=== PATIENT | male | born 1945 | race Caucasian/White ===

== ENCOUNTER → 2023-09-03 11:18 | Outpatient (REF) | payer MEDICARE, OTHER, SELFPAY ==
[2023-09-03 12:01] LABS: D-Dimer 0.38 ug/mlFEU (0.00-0.50)
== END ==
LOC: REG 11:18
PROVIDERS: ATTENDING PHYSICIAN Internal Medicine Critical Care Medicine; FAMILY PHYSICIAN Family Medicine
DX: I27.20 Pulmonary hypertension, unspecified (principal); Z86.711 Personal history of pulmonary embolism; G47.33 Obstructive sleep apnea (adult) (pediatric)
CPT/HCPCS: 36415; 85379

== ENCOUNTER → 2023-09-17 11:21 | Outpatient (REF) | payer MEDICARE, OTHER, SELFPAY | LOC: RAD 11:21 | PROVIDERS: ATTENDING PHYSICIAN Otolaryngology; FAMILY PHYSICIAN Family Medicine | DX: J01.00 Acute maxillary sinusitis, unspecified (principal) | CPT/HCPCS: 70486 ==

== ENCOUNTER → 2023-09-30 09:50 | Outpatient (REF) | payer MEDICARE, OTHER, SELFPAY | LOC: PAVMRI 09:50 | PROVIDERS: ATTENDING PHYSICIAN Physician Assistant; FAMILY PHYSICIAN Family Medicine | DX: M54.16 Radiculopathy, lumbar region (principal) | CPT/HCPCS: 72148 ==

== ENCOUNTER → 2023-10-06 13:42 | Outpatient (REF) | payer MEDICARE, OTHER, SELFPAY ==
[2023-10-06 14:53] LABS: D-Dimer 0.31 ug/mlFEU (0.00-0.50)
== END ==
LOC: REG 13:42
PROVIDERS: ATTENDING PHYSICIAN Internal Medicine Critical Care Medicine; FAMILY PHYSICIAN Family Medicine
DX: Z86.711 Personal history of pulmonary embolism (principal)
CPT/HCPCS: 36415; 85379

== ENCOUNTER 2023-12-03 12:21 | Emergency (ER) | payer MEDICARE, OTHER, SELFPAY ==
[2023-12-03 12:22] VITALS: BP 124/76
[2023-12-03 13:00] VITALS: BP 129/80
[2023-12-03 13:12] LABS: % Basophils 1.1 % (0-2); % Eosinophils 3.8 % (0-6); % Immature Granulocytes 0.3 % (0-0.5); % Monocytes 10.7 % (1.7-9.3); % Neutrophils 55.1 % (42.2-75.2); Absolute Eosinophils 0.1 10^3/uL (0-0.7); Absolute Lymphocytes 1.1 10^3/uL (1.2-3.4); Absolute Monocytes 0.4 10^3/uL (0.1-0.6); Hematocrit 39.4 % (39.0-52.0); Hemoglobin 14.1 g/dL (13.0-18.0); Mean Corp Hgb Conc. 35.8 g/dL (33.0-37.0); Mean Corpuscular Hgb 30.5 pg (27.0-31.0); Mean Corpuscular Volume 85.3 fL (80.0-94.0); Nucleated Red Blood Cells % 0 % (-); Platelet Count 151 10^3/uL (130-400); Red Blood Cell Count 4.62 10^6/uL (4.70-6.10); Red Cell Dist. Width 13.7 % (11.5-14.5); White Blood Cell Count 3.7 10^3/uL (4.8-10.8)
[2023-12-03 13:22] LABS: ALT (SGPT) 17 U/L (0-50); AST (SGOT) 22 U/L (17-59); Alkaline Phosphatase 68 U/L (38-126); Blood Urea Nitrogen 17 mg/dl (9-20); Calcium 8.9 mg/dl (8.4-10.2); Carbon Dioxide 24 mmol/L (22-30); Chloride 109 mmol/L (98-107); Glucose 102 mg/dl (70-99); Potassium 4.1 mmol/L (3.5-5.1); Sodium 139 mmol/L (135-145); Total Bilirubin 0.9 mg/dl (0.2-1.3); Total Protein 6.5 g/dl (6.3-8.2); eGFR > 60.00
--- NOTE | 2023-12-03 13:31 | ED.GENMED ---
History of Present Illness
General
Chief Complaint: Breathing Problem
Time Seen by Provider: 12/03/23 13:09
Travel History
Have you had any contact with someone who has COVID-19?: No
Do you have any symptoms of coronavirus? Fever > 100 degrees, chills, cough, shortness of breath, sore throat, loss of taste or smell, muscle aches, or headache?: Yes
Symptoms:: cough
History of Present Illness
History of Present Illness:
78-year-old male with history of COPD, SHASHANK, HIV (undetectable viral load), history of PE (recently taken off anticoagulation by physician), hypertension presenting to the emergency department for cough and shortness of breath. Patient reports
symptoms for the past week. Reports a cough with been productive, white sputum, worse at nighttime. Denies any fever or known sick contacts. Reports dyspnea with exertion. Reports that he is usually able to go to the gym, which she has not been
able to do so. Denies any lower extremity edema or any history of heart failure. Denies any associated chest pain. Denies any recent surgery, travel, immobility. Denies any calf swelling or pain. Denies abdominal pain or GI symptoms. Reports
noncompliance with SHASHANK. Denies additional acute medical complaints
Past History
Past History
ED Past Medical History: COPD and Other (HIV positive, hypertension, hyperlipidemia)
ED Past Surgical History: None
Social History
Tobacco: Non-smoker
Alcohol: None
Family History
Family History: Hypertension
Phy Exam
Physical Exam
Physical Exam:
GENERAL: Alert , in no apparent distress
EYE: pupils equal and reactive
NECK: Supple, no significant adenopathy.
ENT: o/p clr, mmm.
CARDIAC: Regular rate and rhythm .
LUNGS: Clear breath sounds bilaterally, no acute respiratory distress, no wheezes/rales/rhonchi
ABDOMEN: Soft, without focal tenderness, no r/g, no cvat
NEUROLOGICAL: Alert and oriented, no focal neuro deficits
SKIN: Warm and dry, skin intact.
MUSCULOSKELETAL: No edema, well perfused.
PSYCH: Normal and appropriate interaction.
Scores
Heart Failure Risk
Heart Failure Risk Score: Not Applicable
Course
Orders/Labs/Results
Orders:
Orders
12/03/23 12:56
Cardiac Monitoring- Treatment ONCE
IV Insert/Care/Rem.- Treatment PRN
O2 Therapy [RESP] Urgent
Titrate/Wean O2 to maintain O2 sat greater than (%): 93
Special Instructions: TO MAINTAIN CONTINUOUS O2 SATS >/= 93%
Pulse Ox/cont/shift [RESP] Urgent
Quantity: 1
Special Instructions: continuous pulse ox
12/03/23 12:57
EKG [Electrocardiogram (*1)] Urgent
Reason for Study: Shortness of Breath
12/03/23 12:58
EKG- Treatment ONCE
12/03/23 12:59
Complete Blood Count/With Diff Urgent
Comprehensive Metabolic Panel Urgent
NT-proBNP Urgent
Troponin I Urgent
12/03/23 13:29
CR Chest - 2 Views Urgent
Comment:
Reason For Exam: SOB
12/03/23 13:31
Ipratropium/Albuterol Sulfate [Duoneb] 3 ml INH R NOW STA
12/03/23 13:33
D-Dimer Urgent
12/03/23 16:41
Prednisone [Deltasone] 60 mg PO NOW STA
Abnormal Lab Results
12/03/23
12:59
WBC 3.7 L 10^3/uL
(4.8-10.8)
RBC 4.62 L 10^6/uL
(4.70-6.10)
Absolute Lymphs (auto) 1.1 L 10^3/uL
(1.2-3.4)
Monocytes % 10.7 H %
(1.7-9.3)
Chloride 109 H mmol/L
(98-107)
Glucose 102 H mg/dl
(70-99)
12/03/23 12:59
12/03/23 12:59
Vital Signs
Initial and Last Documented VS:
Initial Vital Signs
Temp Pulse Resp BP Pulse Ox
98.1 F 71 18 124/76 95
12/03/23 12:22 12/03/23 12:22 12/03/23 12:22 12/03/23 12:22 12/03/23 12:22
Last Documented Vital Signs
Temp Pulse Resp BP Pulse Ox
98.1 F 69 20 123/70 97
12/03/23 12:22 12/03/23 16:00 12/03/23 16:00 12/03/23 16:00 12/03/23 16:00
MDM/Problems Addressed
MDM/Problems Addressed:
78-year-old male with history of COPD, SHASHANK, HIV (undetectable viral load), history of PE (recently taken off anticoagulation by physician), hypertension presenting for cough and dyspnea for a week. Vital signs are normal.
On physical exam, patient well-appearing, no acute respiratory distress. Patient with a dry cough. Overall benign pulmonary exam, no focal abnormal lung sounds, no significant wheezing. No lower extremity swelling. EKG obtained, nonischemic.
Lower suspicion for ACS in the absence of chest pain with nonischemic EKG. Differential considerations include COPD exacerbation, pneumonia, viral syndrome, CHF, PE. Lower suspicion for COPD in the absence of wheezing. Will treat symptomatically
with DuoNebs and reassess for improvement. Lower suspicion for pneumonia in the absence of fever. Given duration of symptoms, will obtain chest x-ray imaging. Patient notes undetectable viral load, without concern for HIV related illness. Lower
suspicion for CHF, no rales, no lower extremity edema. Lower suspicion for PE, no provoking symptoms. Given history, will obtain D-dimer.
16:15 -patient's labs relatively unremarkable. No leukocytosis. Normal BNP. Normal D-dimer. Patient reports some improvement after DuoNeb's. Chest x-ray without signs of pneumonia. Suspect a COPD component to symptoms. Ultimately feel stable
for discharge, possible bronchitis component to symptoms. Will start on prednisone. Otherwise feel stable for discharge, however with close interval follow-up with primary care doctor. Patient feels comfortable going home. Return precautions
discussed and patient verbalized understanding
*EKG
Interpreted by ED Provider?: Yes
EKG Intrepretation Date: 12/03/23
EKG Intrepretation Time: 14:06
Interpretation: normal
Comparison EKG: no changes (06/09/23)
Heart Rate: 58
Rate: bradycardiac
Rhythm: sinus
[place]: left axis deviation
Interval: normal interval
QRS Pattern: normal QRS
Ischemia: no ischemia
*Critical Care Note
Total Time (30-74mins, 75-104mins- exclusive of procedures): Not Applicable
ED Attending Note
-
Portions of this chart may have been created with voice recognition software.� Occasional wrong word or��sound alike� substitutions may have occurred due to the inherent limitations of voice recognition software.
Discharge Plan
Departure
Patient Disposition: Home (Routine Discharge)
Date of Disposition: 12/03/23
Time of Disposition: 16:15
Patient with high blood pressure during this ER visit?: No
Condition: Good
Discharge Problem:
Acute bronchitis, COPD (chronic obstructive pulmonary disease)
Instructions: Acute Bronchitis, Adult (DC)
Prescriptions:
New
prednisone 20 mg tablet
40 mg PO DAILY 4 Days Qty: 8 0RF
No Action
montelukast 10 MG tablet
10 mg PO HS
albuterol sulfate 1 PUFF HFA aerosol inhaler
2 puff inhalation R Q4 PRN (Reason: sob/wheezing)
Anoro Ellipta 1 EACH blister with device
1 ea inhalation R DAILY
Tivicay 50 MG tablet
50 mg PO DAILY
Descovy 1 EACH tablet
1 ea PO DAILY
simvastatin 20 MG tablet
20 mg PO QPM 0RF
lorazepam 1 MG tablet
0.5 - 1 mg PO HS
Patient Comments:
11/18/2022: last filled 09/26/22, 30 tabs for 30 days from [facility]
benzonatate 200 mg capsule
200 mg PO TID PRN (Reason: cough)
Patient Comments:
per pt not taking
omeprazole 40 mg capsule,delayed release(DR/EC)
40 mg PO BID
doxylamine succinate 25 mg Tablet
25 mg PO HS
losartan 100 mg tablet
100 mg PO HS
fluticasone propionate [Flovent HFA] 110 mcg/actuation HFA aerosol inhaler
2 puff INHALATION R BID
Xarelto 15 mg tablet
15 mg PO BID Qty: 42 0RF
Rx Instructions:
for 21 days then start 20 mg once a day after it
Xarelto 20 mg tablet
20 mg PO QPM Qty: 30 0RF
Referrals:
Asad Frazier MD [Family Provider] -
Activity Restrictions/Additional Instructions:
Please follow-up closely with your primary care doctor. Return to the emergency department with any increased difficulty breathing, development of fever, worsening cough, development of chest pain, lower extremity swelling, abdominal pain,
vomiting, weakness or lightheadedness or feeling like you are going to pass out
Interventions
Interventions:
*Risk Screen - Suicide Last Done: 12/03/23 12:23
*General Assessment Last Done: 12/03/23 12:23
*Neglect/Abuse Screening Last Done: 12/03/23 12:23
ED- Fall Risk Assessment Last Done: 12/03/23 16:45
*ED COVID-19 Vaccine History Last Done: 12/03/23 13:35
*Nursing Disposition Last Done: 12/03/23 16:45
ED- Cardiac Assessment Last Done: 12/03/23 13:37
ED- Pulmonary Assessment Last Done: 12/03/23 13:37
Discharge Date and Time
Discharge Date/Time: 12/03/23 16:45
Print Language: LIBERIAN
[2023-12-03 13:32] LABS: NT-proBNP 63.1 pg/ml; Troponin I < 0.012 ng/ml
[2023-12-03 13:34] VITALS: BMI 25.2
[2023-12-03] MEDS: DUONEB 3 ML INH (13:47)
[2023-12-03 13:56] LABS: D-Dimer 0.32 ug/mlFEU (0.00-0.50)
[2023-12-03 14:00] VITALS: BP 119/66
[2023-12-03 16:00] VITALS: BP 123/70
[2023-12-03] MEDS: DELTASONE 60 MG PO (16:45)
== END 2023-12-03 16:45 | disposition home or self-care (01) ==
LOC: EMR 12:21
PROVIDERS: Emergency Medicine; EMERGENCY PHYSICIAN Student in an Organized Health Care Education/Training Program; FAMILY PHYSICIAN Family Medicine
DX: J44.0 Chronic obstructive pulmonary disease with (acute) lower respiratory infection (principal); G47.33 Obstructive sleep apnea (adult) (pediatric); Z21 Asymptomatic human immunodeficiency virus [HIV] infection status; I10 Essential (primary) hypertension; E78.00 Pure hypercholesterolemia, unspecified; J20.9 Acute bronchitis, unspecified; Z82.49 Family history of ischemic heart disease and other diseases of the circulatory system; Z86.711 Personal history of pulmonary embolism
CPT/HCPCS: 99283; 94640; 71046; 80053; 83880; 84484; 85025; 85379; 93005

== ENCOUNTER → 2023-12-21 14:16 | Outpatient (REF) | payer MEDICARE, OTHER, SELFPAY | LOC: PAVMRI 14:16 | PROVIDERS: ATTENDING PHYSICIAN Physician Assistant; FAMILY PHYSICIAN Family Medicine | DX: M54.14 Radiculopathy, thoracic region (principal) | CPT/HCPCS: 72146 ==

== ENCOUNTER → 2024-01-11 15:15 | Outpatient (REF) | payer MEDICARE, OTHER, SELFPAY | LOC: CLAB 15:15 | PROVIDERS: ATTENDING PHYSICIAN Otolaryngology | DX: J02.8 Acute pharyngitis due to other specified organisms (principal) | CPT/HCPCS: 87070; 87205 ==

== ENCOUNTER → 2024-02-04 15:23 | Outpatient (REF) | payer MEDICARE, OTHER, SELFPAY ==
[2024-02-04 18:27] LABS: PSA, Total - Diagnostic < 0.06 ng/ml (0.0-4.0)
== END ==
LOC: REG 15:23
PROVIDERS: ATTENDING PHYSICIAN Specialist; FAMILY PHYSICIAN Family Medicine
DX: C61 Malignant neoplasm of prostate (principal)
CPT/HCPCS: 36415; 84153

== ENCOUNTER → 2024-02-09 13:59 | Outpatient (REF) | payer MEDICARE, OTHER, SELFPAY ==
[2024-02-09 15:45] LABS: % Basophils 0.8 % (0-2); % Eosinophils 1.7 % (0-6); % Immature Granulocytes 0.6 % (0-0.5); % Lymphocytes 27.6 % (20.5-51.1); % Monocytes 10.6 % (1.7-9.3); % Neutrophils 58.7 % (42.2-75.2); Absolute Eosinophils 0.1 10^3/uL (0-0.7); Absolute Lymphocytes 1.4 10^3/uL (1.2-3.4); Absolute Monocytes 0.6 10^3/uL (0.1-0.6); Absolute Neutrophils 3.1 10^3/uL (1.4-6.5); Hematocrit 42.6 % (39.0-52.0); Hemoglobin 14.9 g/dL (13.0-18.0); Mean Corpuscular Hgb 31.2 pg (27.0-31.0); Mean Corpuscular Volume 89.3 fL (80.0-94.0); Mean Platelet Volume 9.6 fL (7.4-10.4); Nucleated Red Blood Cells % 0 % (-); Platelet Count 132 10^3/uL (130-400); Red Blood Cell Count 4.77 10^6/uL (4.70-6.10); White Blood Cell Count 5.2 10^3/uL (4.8-10.8)
== END ==
LOC: REG 13:59
PROVIDERS: ATTENDING PHYSICIAN Registered Nurse; FAMILY PHYSICIAN Family Medicine
DX: R19.5 Other fecal abnormalities (principal); K22.719 Barrett's esophagus with dysplasia, unspecified
CPT/HCPCS: 36415; 85025

== ENCOUNTER → 2024-03-01 16:27 | Outpatient (REF) | payer MEDICARE, OTHER, SELFPAY ==
[2024-03-01 17:16] LABS: % Basophils 0.8 % (0-2); % Eosinophils 1.3 % (0-6); % Immature Granulocytes 0.5 % (0-0.5); % Lymphocytes 27.8 % (20.5-51.1); % Neutrophils 56.6 % (42.2-75.2); Absolute Eosinophils 0.1 10^3/uL (0-0.7); Absolute Lymphocytes 1.1 10^3/uL (1.2-3.4); Absolute Monocytes 0.5 10^3/uL (0.1-0.6); Absolute Neutrophils 2.3 10^3/uL (1.4-6.5); Hematocrit 40.7 % (39.0-52.0); Mean Corp Hgb Conc. 34.4 g/dL (33.0-37.0); Mean Corpuscular Hgb 29.9 pg (27.0-31.0); Nucleated Red Blood Cells % 0 % (-); Platelet Count 141 10^3/uL (130-400); Red Blood Cell Count 4.68 10^6/uL (4.70-6.10); Red Cell Dist. Width 13.7 % (11.5-14.5)
[2024-03-01 17:24] LABS: ALT (SGPT) 18 U/L (0-50); AST (SGOT) 25 U/L (17-59); Alkaline Phosphatase 60 U/L (38-126); Blood Urea Nitrogen 20 mg/dl (9-20); Calcium 9.5 mg/dl (8.4-10.2); Carbon Dioxide 26 mmol/L (22-30); Chloride 107 mmol/L (98-107); Glucose 103 mg/dl (70-99); Potassium 4.4 mmol/L (3.5-5.1); Sodium 143 mmol/L (135-145); Total Bilirubin 0.7 mg/dl (0.2-1.3); Total Protein 6.5 g/dl (6.3-8.2); eGFR > 60.00
[2024-03-01 17:28] LABS: C-Reactive Protein < 5.00 mg/L (0.0-10.00)
[2024-03-01 17:41] LABS: Erythrocyte Sed Rate 7 mm/hour (0-20)
[2024-03-03 15:23] LABS: Rheumatoid Agglutinin Less Than 10 IU (<10 IU)
[2024-03-03 23:15] LABS: ANA, IgG Reflex to HEp-2 None Detected (None Detected)
[2024-03-04 01:47] LABS: SSA 52 (Ro)(ENA) Ab, IgG 4 AU/mL (0-40); SSA 60 (Ro)(ENA) Ab, IgG 0 AU/mL (0-40); SSB (La)(ENA) Ab, IgG 3 AU/mL (0-40)
== END ==
LOC: REG 16:27
PROVIDERS: ATTENDING PHYSICIAN Otolaryngology; FAMILY PHYSICIAN Family Medicine
DX: J02.8 Acute pharyngitis due to other specified organisms (principal)
CPT/HCPCS: 36415; 80053; 85025; 85652; 86038; 86140; 86235; 86430

== ENCOUNTER 2024-03-03 09:58 | Emergency (ER) | payer MEDICARE, OTHER, SELFPAY ==
[2024-03-03 09:59] VITALS: BP 127/76
[2024-03-03 10:41] VITALS: BMI 24.7
[2024-03-03 10:45] VITALS: BP 150/81
[2024-03-03] MEDS: MAALOX 30 ML PO (10:50)
[2024-03-03] MEDS: PEPCID 20 MG PO (10:50)
[2024-03-03] MEDS: XYLOCAINE VISCOUS CUP 15 ML PO (10:50)
[2024-03-03 10:52] LABS: % Basophils 0.8 % (0-2); % Eosinophils 1.6 % (0-6); % Immature Granulocytes 0.3 % (0-0.5); % Lymphocytes 28.2 % (20.5-51.1); % Monocytes 16.7 % (1.7-9.3); % Neutrophils 52.4 % (42.2-75.2); Absolute Eosinophils 0.1 10^3/uL (0-0.7); Absolute Lymphocytes 1.1 10^3/uL (1.2-3.4); Absolute Monocytes 0.6 10^3/uL (0.1-0.6); Hematocrit 38.9 % (39.0-52.0); Hemoglobin 13.6 g/dL (13.0-18.0); Mean Corpuscular Hgb 30.1 pg (27.0-31.0); Mean Corpuscular Volume 86.1 fL (80.0-94.0); Mean Platelet Volume 8.3 fL (7.4-10.4); Nucleated Red Blood Cells % 0 % (-); Platelet Count 118 10^3/uL (130-400); Red Blood Cell Count 4.52 10^6/uL (4.70-6.10); Red Cell Dist. Width 13.6 % (11.5-14.5); White Blood Cell Count 3.7 10^3/uL (4.8-10.8)
[2024-03-03 11:12] LABS: ALT (SGPT) 18 U/L (0-50); AST (SGOT) 29 U/L (17-59); Albumin 3.8 g/dl (3.5-5.0); Alkaline Phosphatase 52 U/L (38-126); Blood Urea Nitrogen 20 mg/dl (9-20); Calcium 8.9 mg/dl (8.4-10.2); Carbon Dioxide 25 mmol/L (22-30); Chloride 108 mmol/L (98-107); Estimated Creatinine Clearance 60 ml/min; Glucose 98 mg/dl (70-99); Lipase 74 U/L (23-300); Potassium 4.8 mmol/L (3.5-5.1); Sodium 141 mmol/L (135-145); Total Bilirubin 0.9 mg/dl (0.2-1.3); Total Protein 6.1 g/dl (6.3-8.2); eGFR > 60.00
[2024-03-03 11:21] LABS: Troponin I < 0.012 ng/ml
[2024-03-03 11:32] VITALS: BP 138/90
--- NOTE | 2024-03-03 11:36 | ED.GENMED ---
History of Present Illness
General
Chief Complaint: Abdominal Pain
Time Seen by Provider: 03/03/24 10:02
History of Present Illness
History of Present Illness:
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 Patient reports symptoms have been ongoing for several months,
worsening. Also notes regurgitation after eating with frequent belching. Denies vomiting. Denies associated chest pain. A few days ago, however patient reports he was at the gym and after he got back in his car, had worsening of his symptoms.
He went to cardiology, recommended outpatient stress test which she is having next week. Reports that he had an EGD back in June that was within normal limits. He takes omeprazole daily. Denies any known triggers, however does report after he
drinks coffee and symptoms are worse. Does also note some constipation. Denies fever. Denies additional acute medical complaints.
Past History
Past History
ED Past Medical History: COPD and Other (HIV positive, hypertension, hyperlipidemia)
ED Past Surgical History: None
Social History
Tobacco: Non-smoker
Alcohol: None
Family History
Family History: Hypertension
Phy Exam
Physical Exam
Physical Exam:
General: Well-appearing, no clinical signs of dehydration, nontoxic and in no acute distress
HEENT: protecting airway
Neck: appears supple
CV: Normal heart rate, regular rhythm, no evidence of cyanosis
Resp: No accessory muscle use, no increased work of breathing, lungs clear to auscultation bilaterally
Abd: Soft and non-distended, generalized tenderness to the upper abdomen
Extremities: No deformities, no swelling, no erythema, pulses and sensation intact
Neuro: alert, no focal neurologic deficit
: deferred
Rectal: deferred
Psych: Normal affect
Skin: Intact
Course
Orders/Labs/Results
Orders:
Orders
03/03/24 10:28
Mag Hydrox/Al Hydrox/Simeth [Maalox] 30 ml PO NOW STA
03/03/24 10:29
Famotidine [Pepcid] 20 mg PO ONCE ONE
03/03/24 10:31
Electrocardiogram (*1) Urgent
Reason for Study: Abdominal Pain
EKG- Treatment ONCE
03/03/24 10:32
Viscous Lidocaine 2% [Xylocaine Viscous Cup] 15 ml PO ONCE ONE
03/03/24 10:33
CR Chest - 2 Views Urgent
Comment:
Reason For Exam: upper abdominal pain
03/03/24 10:46
Complete Blood Count/With Diff Urgent
Comprehensive Metabolic Panel Urgent
Lipase Urgent
Troponin I Urgent
03/03/24 10:57
CT Abd/pelvis W Iv Cont Urgent
Comment:
Reason For Exam: upper abdominal pain, constipation
Abnormal Lab Results
03/03/24
10:46
WBC 3.7 L 10^3/uL
(4.8-10.8)
RBC 4.52 L 10^6/uL
(4.70-6.10)
Hct 38.9 L %
(39.0-52.0)
Plt Count 118 L 10^3/uL
(130-400)
Absolute Lymphs (auto) 1.1 L 10^3/uL
(1.2-3.4)
Monocytes % 16.7 H %
(1.7-9.3)
Chloride 108 H mmol/L
(98-107)
Total Protein 6.1 L g/dl
(6.3-8.2)
03/03/24 10:46
03/03/24 10:46
Vital Signs
Initial and Last Documented VS:
Initial Vital Signs
Temp Pulse Resp BP Pulse Ox
98.2 F 78 16 127/76 95
03/03/24 09:59 03/03/24 09:59 03/03/24 09:59 03/03/24 09:59 03/03/24 09:59
Last Documented Vital Signs
Temp Pulse Resp BP Pulse Ox
98.2 F 66 23 150/75 94
03/03/24 09:59 03/03/24 12:45 03/03/24 12:45 03/03/24 12:07 03/03/24 12:45
MDM/Problems Addressed
MDM/Problems Addressed:
78-year-old male with history of HIV controlled with medication, Topete's esophagitis, COPD presenting for upper abdominal pain and burning for several months. Vital signs are normal
On exam, patient is well-appearing, no acute distress or discomfort. Benign cardiac and pulmonary exam. On abdominal exam, mild tenderness to the upper abdomen. Symptom presentation appears most consistent with GERD versus gastritis versus hiatal
hernia. Lower suspicion for ACS, absence of chest pain. Will screen with EKG and troponin. Will treat with GI cocktail. Lower suspicion for serious intra-abdominal pathology, however given duration of symptoms, will screen with CT abdominal
imaging for further evaluation
13:30 - Labs unremarkable. Chest x-ray without acute cardiopulmonary disease. CT abdomen pelvis without acute intra-abdominal pathology. Incidental findings of adrenal adenoma, made patient aware. Patient otherwise remains hemodynamically
stable. Patient has an appointment with GI next month. Advised maintaining this appointment for continued management of suspected gastric process. Feel stable for discharge. Will prescribe Pepcid and Maalox. Return precautions discussed and
patient verbalized understanding
*Critical Care Note
Total Time (30-74mins, 75-104mins- exclusive of procedures): Not Applicable
ED Attending Note
-
Portions of this chart may have been created with voice recognition software.� Occasional wrong word or��sound alike� substitutions may have occurred due to the inherent limitations of voice recognition software.
Discharge Plan
Departure
Prescriptions:
No Action
montelukast 10 MG tablet
10 mg PO HS
albuterol sulfate 1 PUFF HFA aerosol inhaler
2 puff inhalation R Q4 PRN (Reason: sob/wheezing)
Anoro Ellipta 1 EACH blister with device
1 ea inhalation R DAILY
Tivicay 50 MG tablet
50 mg PO DAILY
Descovy 1 EACH tablet
1 ea PO DAILY
simvastatin 20 MG tablet
20 mg PO QPM 0RF
lorazepam 1 MG tablet
0.5 - 1 mg PO HS
Patient Comments:
11/18/2022: last filled 09/26/22, 30 tabs for 30 days from [facility]
benzonatate 200 mg capsule
200 mg PO TID PRN (Reason: cough)
Patient Comments:
per pt not taking
omeprazole 40 mg capsule,delayed release(DR/EC)
40 mg PO BID
doxylamine succinate 25 mg Tablet
25 mg PO HS
losartan 100 mg tablet
100 mg PO HS
fluticasone propionate [Flovent HFA] 110 mcg/actuation HFA aerosol inhaler
2 puff INHALATION R BID
Xarelto 15 mg tablet
15 mg PO BID Qty: 42 0RF
Rx Instructions:
for 21 days then start 20 mg once a day after it
Xarelto 20 mg tablet
20 mg PO QPM Qty: 30 0RF
prednisone 20 mg tablet
40 mg PO DAILY 4 Days Qty: 8 0RF
Referrals:
Asad Frazier MD [Family Provider] -
Interventions
Interventions:
*Risk Screen - Suicide Last Done: 03/03/24 10:43
*General Assessment Last Done: 03/03/24 10:43
*Neglect/Abuse Screening Last Done: 03/03/24 10:43
ED- Fall Risk Assessment Last Done: 03/03/24 10:43
*ED COVID-19 Vaccine History Last Done: 03/03/24 10:43
TY-Qnvkcr-Zgiwpwfsoo Assessment Last Done: 03/03/24 10:43
Discharge Date and Time
Print Language: TURKISH
[2024-03-03 12:07] VITALS: BP 150/75
[2024-03-03 13:01] VITALS: BP 146/87
== END 2024-03-03 13:54 | disposition home or self-care (01) ==
LOC: EMR 09:58
PROVIDERS: EMERGENCY PHYSICIAN Student in an Organized Health Care Education/Training Program; FAMILY PHYSICIAN Family Medicine
DX: K21.9 Gastro-esophageal reflux disease without esophagitis (principal); J44.9 Chronic obstructive pulmonary disease, unspecified; Z21 Asymptomatic human immunodeficiency virus [HIV] infection status
CPT/HCPCS: 99285; 71046; 74177; 80053; 83690; 84484; 85025; Q9967

== ENCOUNTER → 2024-03-07 10:55 | Outpatient (REF) | payer MEDICARE, OTHER, SELFPAY | LOC: DHCBC/DCA 10:55 | PROVIDERS: ATTENDING PHYSICIAN Nuclear Medicine Nuclear Cardiology; FAMILY PHYSICIAN Family Medicine | DX: I10 Essential (primary) hypertension (principal); R06.02 Shortness of breath; R07.89 Other chest pain | CPT/HCPCS: 78452; 93017; A9500; J2785 ==

== ENCOUNTER 2024-03-08 10:29 | Emergency (ER) | payer MEDICARE, OTHER, SELFPAY ==
[2024-03-08 10:42] VITALS: BP 143/85
--- NOTE | 2024-03-08 10:43 | ED.PDOC.TRB ---
ED Provider Triage
-
Patient seen by provider in Triage?: Seen in Triage
Initial encounter to facilitate workup from triage. This is a 78-year-old male presenting with chest discomfort and burning' that feels like indigestion. Has been ongoing for the past day. He had a similar bout of symptoms that prompted him to
come to the ER last week, followed up with cardiology and had a nuclear stress test performed yesterday, no interpretation finalized yet. Cephalometric Technician is Dr. Bran. Has symptoms at present. Does note that symptoms were worsened with exercise
yesterday and he had to discontinue exercise early.
GEN: Well appearing, NAD, WDWN
HEENT: Oral mucosa moist, no scleral icterus
Cardiac: Regular rate
Lung: No respiratory distress, no tachypnea
MSK: No gross deformity or injuries
Skin: Good color, no pallor or jaundice, no rashes
Neuro: AO x3, moves all extremities freely
Psych: Calm, cooperative
Initial EKG nonischemic.
A/P: Chest pain. Given exertional symptoms yesterday will initiate cardiac workup and chest x-ray. No evidence of ST changes on EKG
[2024-03-08 10:56] LABS: % Basophils 0.7 % (0-2); % Eosinophils 2.2 % (0-6); % Immature Granulocytes 0.5 % (0-0.5); % Lymphocytes 31.4 % (20.5-51.1); % Monocytes 14.5 % (1.7-9.3); % Neutrophils 50.7 % (42.2-75.2); Absolute Eosinophils 0.1 10^3/uL (0-0.7); Absolute Lymphocytes 1.3 10^3/uL (1.2-3.4); Absolute Monocytes 0.6 10^3/uL (0.1-0.6); Absolute Neutrophils 2.1 10^3/uL (1.4-6.5); Hematocrit 40.3 % (39.0-52.0); Hemoglobin 14.4 g/dL (13.0-18.0); Mean Corp Hgb Conc. 35.7 g/dL (33.0-37.0); Mean Corpuscular Hgb 31.4 pg (27.0-31.0); Mean Corpuscular Volume 87.8 fL (80.0-94.0); Mean Platelet Volume 9.3 fL (7.4-10.4); Nucleated Red Blood Cells % 0 % (-); Platelet Count 116 10^3/uL (130-400); Red Blood Cell Count 4.59 10^6/uL (4.70-6.10); Red Cell Dist. Width 13.6 % (11.5-14.5); White Blood Cell Count 4.1 10^3/uL (4.8-10.8)
[2024-03-08 11:26] LABS: Troponin I < 0.012 ng/ml
[2024-03-08 11:30] LABS: ALT (SGPT) 21 U/L (0-50); AST (SGOT) 25 U/L (17-59); Albumin 3.9 g/dl (3.5-5.0); Alkaline Phosphatase 74 U/L (38-126); Blood Urea Nitrogen 16 mg/dl (9-20); Calcium 9.1 mg/dl (8.4-10.2); Carbon Dioxide 21 mmol/L (22-30); Chloride 110 mmol/L (98-107); Glucose 119 mg/dl (70-99); Potassium 4.2 mmol/L (3.5-5.1); Sodium 142 mmol/L (135-145); Total Bilirubin 0.8 mg/dl (0.2-1.3); Total Protein 6.2 g/dl (6.3-8.2); eGFR > 60.00
[2024-03-08] MEDS: MAALOX 40 PO (13:24)
[2024-03-08 13:57] VITALS: BP 148/78
--- NOTE | 2024-03-08 14:25 | ED.GENMED ---
History of Present Illness
General
Chief Complaint: Chest Pain
Source: patient and spouse
Exam Limitations: none
Time Seen by Provider: 03/08/24 12:22
Nursing documentation reviewed up to this point in time: agreed with
History of Present Illness
History of Present Illness:
78-year-old male past medical history of heart disease previous PE asthma HIV presenting to the emergency department today with concerns of ongoing GI symptoms over the past month or so has been here in the ER for similar symptoms multiple times had
a CT scan a few days ago which did not show any emergent findings. Has been taking omeprazole at home with some ongoing symptoms. Scheduled GI appointment in 1 month.
Past History
Past History
ED Past Medical History: COPD and Other (HIV positive, hypertension, hyperlipidemia)
ED Past Surgical History: None
Social History
Tobacco: Non-smoker
Alcohol: None
Family History
Family History: Hypertension
Review of Systems
Review of Systems
Allergies reviewed?: Yes
All Other Systems: ROS reviewed and negative except as documented in HPI and ROS
Phy Exam
Physical Exam
Physical Exam:
GENERAL: Alert , in no apparent distress
EYE: pupils equal and reactive
NECK: Supple, no significant adenopathy.
ENT: o/p clr, mmm.
CARDIAC: Regular rate and rhythm .
LUNGS: Clear breath sounds bilaterally, no acute respiratory distress, no wheezes/rales/rhonchi
ABDOMEN: Soft, without focal tenderness, no r/g, no cvat
NEUROLOGICAL: Alert and oriented, no focal neuro deficits
SKIN: Warm and dry, skin intact.
MUSCULOSKELETAL: No edema, well perfused.
PSYCH: Normal and appropriate interaction.
Scores
Heart Score for Chest Pain Patients
STEMI patient?: No
History: Slightly or Non-Suspicious
ECG: Normal
Age: >/= 65 years
Risk Factors: >/= 3 Risk Factors or History of CAD
Troponin: </= Normal Limit
Heart Score for Chest Pain Patients: 4
Heart Score Risk: 20.3% MACE over next 6 weeks
Course
Orders/Labs/Results
Orders:
Orders
03/08/24 10:30
Electrocardiogram (*1) Urgent
Reason for Study: Abdominal Pain
EKG- Treatment ONCE
03/08/24 10:43
CR Chest - 2 Views Urgent
Comment:
Reason For Exam: chest pain
03/08/24 10:47
Complete Blood Count/With Diff Urgent
Comprehensive Metabolic Panel Urgent
Troponin I Urgent
03/08/24 12:38
Mag Hydrox/Al Hydrox/Simeth [Maalox] 30 ml Phenobarb/Hyoscy/Atropine/Scop [] 10 ml PO NOW
03/08/24 13:13
Mag Hydrox/Al Hydrox/Simeth [Maalox] 30 ml .ROUTE .STK-MED ONE
Phenobarb/Hyoscy/Atropine/Scop [] 10 ml .ROUTE .STK-MED ONE
Abnormal Lab Results
03/08/24
10:47
WBC 4.1 L 10^3/uL
(4.8-10.8)
RBC 4.59 L 10^6/uL
(4.70-6.10)
MCH 31.4 H pg
(27.0-31.0)
Plt Count 116 L 10^3/uL
(130-400)
Monocytes % 14.5 H %
(1.7-9.3)
Chloride 110 H mmol/L
(98-107)
Carbon Dioxide 21 L mmol/L
(22-30)
Glucose 119 H mg/dl
(70-99)
Total Protein 6.2 L g/dl
(6.3-8.2)
03/08/24 10:47
03/08/24 10:47
Vital Signs
Initial and Last Documented VS:
Initial Vital Signs
Temp Pulse Resp BP Pulse Ox
98.6 F 82 20 143/85 95
03/08/24 10:42 03/08/24 10:42 03/08/24 10:42 03/08/24 10:42 03/08/24 10:42
Last Documented Vital Signs
Temp Pulse Resp BP Pulse Ox
98.6 F 59 18 148/78 96
03/08/24 10:42 03/08/24 13:57 03/08/24 13:57 03/08/24 13:57 03/08/24 13:57
MDM/Problems Addressed
MDM/Problems Addressed:
78-year-old male presenting to the emergency department today with concerns of ongoing upper abdominal pain worse with eating certain the past month or so ongoing symptoms today with mom to come back to the ER. Unable to secure any appointments
with GI and less than a month no significant reproducible pain to abdominal palpation had a recent CT scan which did not show any emergent findings. Labs here are unremarkable recent negative lipase. Chest x-ray normal. Patient was given a green
grabber with resolution of symptoms. Advised for close GI follow-up. GI java front end web developer was contacted who claims that they can get him in sooner. Return precautions given.
*Critical Care Note
Total Time (30-74mins, 75-104mins- exclusive of procedures): Not Applicable
ED Attending Note
-
Portions of this chart may have been created with voice recognition software.� Occasional wrong word or��sound alike� substitutions may have occurred due to the inherent limitations of voice recognition software.
Discharge Plan
Departure
Patient Disposition: Home (Routine Discharge)
Date of Disposition: 03/08/24
Time of Disposition: 14:25
Patient with high blood pressure during this ER visit?: No
Condition: Good
Covid-19: Not Applicable
Discharge Problem:
Upper gastrointestinal distress
Instructions: Acid Reflux and GERD in Adults (DC)
Prescriptions:
New
famotidine 20 mg tablet
20 mg PO BID 21 Days Qty: 42 0RF
sucralfate [Carafate] 100 mg/mL suspension
10 ml PO AC Qty: 1000 0RF
No Action
montelukast 10 MG tablet
10 mg PO HS
albuterol sulfate 1 PUFF HFA aerosol inhaler
2 puff inhalation R Q4 PRN (Reason: sob/wheezing)
Anoro Ellipta 1 EACH blister with device
1 ea inhalation R DAILY
Tivicay 50 MG tablet
50 mg PO DAILY
Descovy 1 EACH tablet
1 ea PO DAILY
simvastatin 20 MG tablet
20 mg PO QPM 0RF
lorazepam 1 MG tablet
0.5 - 1 mg PO HS
Patient Comments:
11/18/2022: last filled 09/26/22, 30 tabs for 30 days from [facility]
benzonatate 200 mg capsule
200 mg PO TID PRN (Reason: cough)
Patient Comments:
per pt not taking
omeprazole 40 mg capsule,delayed release(DR/EC)
40 mg PO BID
doxylamine succinate 25 mg Tablet
25 mg PO HS
losartan 100 mg tablet
100 mg PO HS
fluticasone propionate [Flovent HFA] 110 mcg/actuation HFA aerosol inhaler
2 puff INHALATION R BID
Xarelto 15 mg tablet
15 mg PO BID Qty: 42 0RF
Rx Instructions:
for 21 days then start 20 mg once a day after it
Xarelto 20 mg tablet
20 mg PO QPM Qty: 30 0RF
prednisone 20 mg tablet
40 mg PO DAILY 4 Days Qty: 8 0RF
famotidine [Acid Controller] 20 mg tablet
20 mg PO BID Qty: 60 0RF
alum-mag hydroxide-simeth [Antacid Liquid] 200-200-20 mg/5 mL suspension
10 ml PO QID PRN (Reason: dyspepsia) Qty: 3000 0RF
Referrals:
UNKNOWN - PT DOES,NOT KNOW [Family Provider] -
Samreen Mack, DO [Active] - Follow up in 10 days
Activity Restrictions/Additional Instructions:
You came to the emergency department today with concerns of ongoing GI issues. Here you had a reassuring cardiac workup and chest x-ray. Please take the prescribed medications and follow-up closely with GI. Return to the emergency department any
worsening, new or concerning symptoms.
Interventions
Interventions:
ED- Cardiac Assessment Last Done: 03/08/24 14:01
Discharge Date and Time
Print Language: TUNISIAN
== END 2024-03-08 15:02 | disposition home or self-care (01) ==
LOC: EMR 10:29
PROVIDERS: Physician Assistant; EMERGENCY PHYSICIAN Student in an Organized Health Care Education/Training Program
DX: M54.50 Low back pain, unspecified (principal); R07.89 Other chest pain; R10.10 Upper abdominal pain, unspecified; K30 Functional dyspepsia; J44.89 Other specified chronic obstructive pulmonary disease; Z21 Asymptomatic human immunodeficiency virus [HIV] infection status; I10 Essential (primary) hypertension; E78.5 Hyperlipidemia, unspecified; G47.30 Sleep apnea, unspecified; K21.9 Gastro-esophageal reflux disease without esophagitis; F41.9 Anxiety disorder, unspecified; Z85.89 Personal history of malignant neoplasm of other organs and systems; Z87.442 Personal history of urinary calculi; Z87.891 Personal history of nicotine dependence; Z86.19 Personal history of other infectious and parasitic diseases
CPT/HCPCS: 99283; 71046; 80053; 84484; 85025; 93005

== ENCOUNTER → 2024-04-18 06:32 | Day surgery (SDC) | payer MEDICARE, OTHER, SELFPAY | LOC: GI 06:32 | PROVIDERS: ATTENDING PHYSICIAN Internal Medicine Gastroenterology | DX: Z12.11 Encounter for screening for malignant neoplasm of colon (principal); K57.30 Diverticulosis of large intestine without perforation or abscess without bleeding; K64.8 Other hemorrhoids; K55.20 Angiodysplasia of colon without hemorrhage; K22.89 Other specified disease of esophagus; K22.70 Barrett's esophagus without dysplasia; D12.2 Benign neoplasm of ascending colon; D12.3 Benign neoplasm of transverse colon; D12.4 Benign neoplasm of descending colon; D12.5 Benign neoplasm of sigmoid colon; Z86.0100 Personal history of colon polyps, unspecified | CPT/HCPCS: 45385; 45380; 43239; 88305; 88342 ==

== ENCOUNTER → 2024-05-13 13:31 | Outpatient (REF) | payer MEDICARE, OTHER, SELFPAY | LOC: RAD 13:31 | PROVIDERS: ATTENDING PHYSICIAN Internal Medicine Gastroenterology; FAMILY PHYSICIAN Family Medicine | DX: R10.13 Epigastric pain (principal) | CPT/HCPCS: 74177; Q9967 ==

== ENCOUNTER → 2024-06-13 08:00 | Outpatient (REF) | payer MEDICARE, OTHER, SELFPAY | LOC: RAD 08:00 | PROVIDERS: ATTENDING PHYSICIAN Internal Medicine Gastroenterology; FAMILY PHYSICIAN Family Medicine | DX: R10.13 Epigastric pain (principal) | CPT/HCPCS: 78264; A9541 ==

== ENCOUNTER 2024-11-18 06:19 | Outpatient (RCR) | payer MEDICARE, OTHER, SELFPAY | END 2024-11-18 23:59 | disposition home or self-care (01) | LOC: RPT 06:19 | PROVIDERS: ATTENDING PHYSICIAN Internal Medicine Gastroenterology; FAMILY PHYSICIAN Family Medicine | DX: J44.9 Chronic obstructive pulmonary disease, unspecified (principal); Z73.6 Limitation of activities due to disability | CPT/HCPCS: 97140; 97161; 97530 ==

== ENCOUNTER → 2024-11-30 14:33 | Outpatient (REF) | payer MEDICARE, OTHER, SELFPAY | LOC: RCS 14:33 | PROVIDERS: ATTENDING PHYSICIAN Nuclear Medicine Nuclear Cardiology; FAMILY PHYSICIAN Family Medicine | DX: I10 Essential (primary) hypertension (principal); Z86.711 Personal history of pulmonary embolism; E78.2 Mixed hyperlipidemia | CPT/HCPCS: 93306 ==

== ENCOUNTER 2024-12-06 11:56 | Outpatient (RCR) | payer MEDICARE, OTHER, SELFPAY | END 2024-12-06 23:59 | disposition home or self-care (01) | LOC: RPT 11:56 | PROVIDERS: ATTENDING PHYSICIAN Internal Medicine Gastroenterology; FAMILY PHYSICIAN Family Medicine | DX: J44.9 Chronic obstructive pulmonary disease, unspecified (principal); Z73.6 Limitation of activities due to disability | CPT/HCPCS: 97110; 97140 ==

== ENCOUNTER → 2025-01-20 11:50 | Outpatient (REF) | payer MEDICARE, OTHER, SELFPAY ==
[2025-01-20 12:59] LABS: Hematocrit 41.9 % (39.0-52.0); Hemoglobin 14.0 g/dL (13.0-18.0); Mean Corp Hgb Conc. 33.4 g/dL (33.0-37.0); Mean Corpuscular Volume 85.2 fL (80.0-94.0); Nucleated Red Blood Cells % 0 % (-); Platelet Count 124 10^3/uL (130-400); Red Cell Dist. Width 14.3 % (11.5-14.5)
[2025-01-20 13:59] LABS: PSA, Total - Diagnostic < 0.06 ng/ml (0.0-4.0)
== END ==
LOC: REG 11:50
PROVIDERS: ATTENDING PHYSICIAN Specialist; FAMILY PHYSICIAN Family Medicine
DX: C61 Malignant neoplasm of prostate (principal); D69.6 Thrombocytopenia, unspecified
CPT/HCPCS: 36415; 84153; 85025

== ENCOUNTER → 2025-05-30 13:33 | Outpatient (REF) | payer MEDICARE, OTHER, SELFPAY | LOC: RAD 13:33 | PROVIDERS: ATTENDING PHYSICIAN Internal Medicine Gastroenterology; FAMILY PHYSICIAN Family Medicine | DX: K59.00 Constipation, unspecified (principal) | CPT/HCPCS: 74018 ==

== ENCOUNTER 2025-06-05 06:21 | Day surgery (SDC) | payer MEDICARE, OTHER, SELFPAY | END 2025-06-05 11:55 | disposition home or self-care (01) | LOC: GI 06:21 | PROVIDERS: ATTENDING PHYSICIAN Internal Medicine Gastroenterology | DX: K31.89 Other diseases of stomach and duodenum (principal); K29.70 Gastritis, unspecified, without bleeding; R10.13 Epigastric pain | CPT/HCPCS: 43239; 88305; 88312; 88313; 88342 ==